=== PATIENT | female | born 1965 | race Caucasian/White ===

== ENCOUNTER 2016-04-26 10:54 | Emergency (ER) | payer OTHER ==
--- NOTE | 2016-04-26 11:11 | UCPHY ---
H & P Patient Type: New Time Seen by Provider: 04/26/16 11:05 HPI/ROS: CHIEF COMPLAINT: Dysuria, flank pain HISTORY OF PRESENT ILLNESS: 50-year-old immunocompetent female complaining of 48 hours of dysuria, increased frequency with development of left flank pain since last night. History of frequent UTI. Denies: Nausea, vomiting, abdominal pain, chest pain, fever, chills, flu-like symptoms PRIMARY CARE PROVIDER:no PCP REVIEW OF SYSTEMS: A ten point review of systems was performed and is negative with the exception of the items mentioned in the HPI PAST MEDICAL & SURGICAL HISTORY: Frequent UTI SOCIAL HISTORY: Law student PHYSICAL EXAM (Prior to examination, patient consented to physical exam, hands were washed and my usual and customary physical exam procedures followed) 1) GENERAL: Well-developed, well-nourished, alert and oriented. Appears to be in no acute distress. 2) HEAD: Normocephalic, atraumatic 3) HEENT: Pupils equal, round, reactive to light bilaterally. Sclera anicteric. 4) NECK: Full range of motion, no meningeal signs. 5) LUNGS: Clear auscultation bilaterally, no wheezes, no rhonchi, no retractions. 6) HEART: Regular rate and rhythm, no murmur, no heave, no gallop. 7) ABDOMEN: No guarding, no rebound, no focal tenderness, negative McBurney's, negative Chua's, negative Rovsing's, negative peritoneal sign, 8) MUSCULOSKELETAL: Moving all extremities, no focal areas of tenderness, no obvious trauma. No peripheral edema or discoloration. 9) BACK: positive left CVA tenderness, no rash no lesion.] 10) SKIN: No rash, no petechiae. 11) Psychiatric: Patient is oriented X 3, there is no agitation. DIFFERENTIAL DIAGNOSIS: in no particular include but limited to nephrolithiasis , pyelonephritis, cystitis - Family History Significant Family History: No pertinent family hx Constitutional: Initial Vital Signs Temperature (C) 36.8 C 04/26/16 11:12 Heart Rate 72 04/26/16 11:12 Respiratory Rate 16 04/26/16 11:12 Blood Pressure 118/83 H 04/26/16 11:12 O2 Sat (%) 97 04/26/16 11:12 O2 Delivery Mode Room Air Allergies/Adverse Reactions: acetaminophen [From Vicodin] Allergy (Verified 04/26/16 11:15) codeine Allergy (Verified 04/26/16 11:15) hydrocodone bitartrate [From Vicodin] Allergy (Verified 04/26/16 11:15) morphine Allergy (Verified 04/26/16 11:15) Penicillins Allergy (Verified 04/26/16 11:15) Sulfa (Sulfonamide Antibiotics) Allergy (Verified 04/26/16 11:15) Home Medications: Medication Instructions Recorded Cephalexin [Keflex] 500 mg PO TID 7 Days 04/26/16 Phenazopyridine HCl [Pyridium] 200 mg PO PC #10 tab 04/26/16 Medical Decision Making ED Course/Re-evaluation: I feel the patient can be treated on an outpatient basis as I believe her to be a competent decision-maker, shows no signs of urosepsis, afebrile, no comorbid medical conditions. Doubt urosepsis. Tolerating oral intake. Nonetheless, I have provided acute urinary tract infection red flag signs and symptoms precautions, and reasons to return to the emergency department. The patient understands that this diagnosis is provisional and can never be 100% accurate. Usual and customary warnings were given concerning the clinical impression and all the patient's questions were answered. The patient was instructed to return to the emergency department should her symptoms worsen or return, or develop any new symptoms, otherwise to followup as directed in discharge instructions. - Data Points Laboratory Results: 04/26/16 11:15 Urine Color YELLOW Urine Appearance CLEAR Urine pH 6.5 (5.0-7.5) Ur Specific [place] 1.015 (1.002-1.030) Urine Protein TRACE H (NEGATIVE) Urine Ketones NEGATIVE (NEGATIVE) Urine Blood 2+ H (NEGATIVE) Urine Nitrate POSITIVE H (NEGATIVE) Urine Bilirubin NEGATIVE (NEGATIVE) Urine Urobilinogen 1.0 EU (0.2-1.0) Ur Leukocyte Esterase TRACE H (NEGATIVE) Urine RBC 5-10 H /hpf (0-3) Urine WBC 15-25 H /hpf (0-3) Ur Epithelial Cells 3+ H /lpf (NONE-1+) Urine Bacteria TRACE H /hpf (NONE SEEN) Urine Mucus 2+ H /lpf (NONE-1+) Urine Glucose NEGATIVE (NEGATIVE) Urine Test NEGATIVE Medications Given: Discontinued Medications Cephalexin HCl (Keflex) 500 mg PO EDNOW ONE PRN Reason: Protocol Stop: 04/26/16 11:40 Last Admin: 04/26/16 11:50 Dose: 500 mg Departure - Departure Disposition: Home, Routine, Self-Care Clinical Impression: Pyelonephritis Condition: Good Instructions: Kidney Infection (ED) Additional Instructions: Return to the ER immediately if you experience fevers/chills, flu like symptoms , inability to tolerate oral intake, nausea or vomiting, or any other symptoms that concern you. Referrals: Lydia Hull MD [Medical Doctor] - 2-3 days, call for appt. Prescriptions: Cephalexin [Keflex] 500 mg PO TID 7 Days Phenazopyridine HCl [Pyridium] 200 mg PO #10 tab - PQRS PQRS Measurement: Not applicable
[2016-04-26 11:14] VITALS: BP 118/83; PULSE 72; RESP 16; TEMP 98.2; O2SAT 97
[2016-04-26 11:29] LABS: COLOR YELLOW; LEUKOCYTE ESTERASE,URINE TRACE (NEGATIVE); NITRITE,URINE POSITIVE (NEGATIVE); PH,URINE 6.5 (5.0-7.5)
[2016-04-26] MEDS ORDERED: CEPHALEXIN 500 MG CAP PO ONE (11:39)
[2016-04-26 11:56] LABS: BACTERIA TRACE /hpf (NONE SEEN); MUCUS 2+ /lpf (NONE-1+); WBC,URINE 15-25 /hpf (0-3)
== END 2016-04-26 12:00 | disposition home or self-care (01) ==
LOC: CED 10:54
DX: N15.9 Renal tubulo-interstitial disease, unspecified (principal); Z87.440 Personal history of urinary (tract) infections
CPT/HCPCS: 81003-PO; 81015-PO; 81025-PO; 99203-PO; G0463-PO

== ENCOUNTER 2016-04-30 14:09 | Emergency (ER) | payer OTHER ==
[2016-04-30 14:22] VITALS: BP 121/83; PULSE 70; RESP 18; TEMP 98; O2SAT 97
[2016-04-30 15:22] LABS: COLOR ORANGE
[2016-04-30 15:31] LABS: BACTERIA 1+ /hpf (NONE SEEN); MUCUS 1+ /lpf (NONE-1+)
--- NOTE | 2016-04-30 15:45 | UCPHY ---
H & P Time Seen by Provider: 04/30/16 15:24 Patient Type: Established HPI/ROS: This patient presents for recheck of pyelonephritis after being seen here 4 days ago. She was started on Keflex 4 days prior to this visit for pyelonephritis. Despite compliance with medications reports ongoing flank pain left more than right that is mild to moderate intensity as well as a sense of bladder discomfort. She also reports mild nausea but no vomiting. She reports partial improvement in her symptoms from [id number] analgesics with no other exacerbating or alleviating factors. ROS: No high fevers or chills. No other constitutional symptoms. HEENT: No complaints pulmonary: No complaints cardiovascular: No lightheadedness. : No vaginal discharge. She is postmenopausal. 7 point ROS is otherwise negative. Past Medical/Surgical History: Pyelonephritis with visit here to [facility] 4 days prior to this visit. 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 ENT, Mouth: Mucous membranes moist. Respiratory: No respiratory distress or tachypnea Cardiovascular: Regular rate and rhythm. Gastrointestinal: Mild suprapubic tenderness with no guarding or rebound. Back: Mild left CVA tenderness Neurological: Alert with no deficits Skin: Warm and dry, no rashes. Psychiatric: Mood and affect normal DIFFERENTIAL DIAGNOSIS: After history and physical exam differential diagnosis was considered for persistent pyelonephritis, musculoskeletal strain, viral illness, perinephric abscess, PID Constitutional: Initial Vital Signs Temperature (C) 36.6 C 04/30/16 14:19 Heart Rate 70 04/30/16 14:19 Respiratory Rate 18 04/30/16 14:19 Blood Pressure 121/83 H 04/30/16 14:19 O2 Sat (%) 97 04/30/16 14:19 O2 Delivery Mode Room Air Allergies/Adverse Reactions: acetaminophen [From Vicodin] Allergy (Verified 04/26/16 11:15) codeine Allergy (Verified 04/26/16 11:15) hydrocodone bitartrate [From Vicodin] Allergy (Verified 04/26/16 11:15) morphine Allergy (Verified 04/26/16 11:15) Penicillins Allergy (Verified 04/26/16 11:15) Sulfa (Sulfonamide Antibiotics) Allergy (Verified 04/26/16 11:15) Home Medications: Medication Instructions Recorded Cephalexin [Keflex] 500 mg PO TID 7 Days 04/26/16 Phenazopyridine HCl [Pyridium] 200 mg PO PC #10 tab 04/26/16 Ciprofloxacin [Cipro] 500 mg PO BID #14 tab 04/30/16 Phenazopyridine HCl [Pyridium 200 mg PO TID PRN #6 tab 04/30/16 200mg (RX)] MDM/Departure - MDM Diagnostics: The patient's urine micro reveals persistent pyuria finding similar to her 1st visit. ED Course/Re-evaluation: Given patient's ongoing symptoms will switch her to a different antibiotic. We discussed options with her allergies were somewhat limited. She will start a course of ciprofloxacin. She understands the potential risk of tendon inflammation/rupture but has tolerated this medication in the past and accepts this risk. Despite the patient's persistent symptoms, she does not have septic physiology and appears clinically well. No fevers or other concerning findings. - Depart Disposition: Home, Routine, Self-Care Clinical Impression: Urinary tract infection Qualifiers: Urinary tract infection type: acute pyelonephritis Qualifier Code: (N10) Acute pyelonephritis Instructions: Urinary Tract Infection in Women (ED) Additional Instructions: Diagnosis: Pyelonephritis Plan: Stop Keflex. Start Cipro antibiotic. Tylenol and/or ibuprofen for discomfort if needed Drink plenty fluids Peridium in addition for burning as needed. Return for any significant worsening despite the treatment plan. Prescriptions: Ciprofloxacin [Cipro] 500 mg PO BID #14 tab Phenazopyridine HCl [Pyridium 200mg (RX)] 200 mg PO TID PRN #6 tab PRN Reason: dysuria Referrals: NONE *PRIMARY CARE P,. [Primary Care Provider] - As per Instructions - PQRS PQRS Measurement: NA
== END 2016-04-30 15:53 | disposition home or self-care (01) ==
LOC: CED 14:09
DX: N10 Acute pyelonephritis (principal)
CPT/HCPCS: 81003-PO; 81015-PO; 99214-PO; G0463-PO

== ENCOUNTER 2018-05-22 15:40 | Emergency (ER) | payer OTHER ==
[2018-05-22 15:50] VITALS: BP 132/84
[2018-05-22] MEDS ORDERED: ACETAMINOPHEN 500 MG TAB PO ONE (16:13)
--- NOTE | 2018-05-22 16:25 | EDPHY ---
H & P Stated Complaint: 45 min lpta fell backward hit post head and left elbow irma,-loc Time Seen by Provider: 05/22/18 15:51 HPI/ROS: This patient presents with closed head injury and neck injury. She explains that she was at her home walking on the back patio and slipped on an icy stone stairs striking her head on flag stone at the occiput. She states that she slammed on very hard heard a crack sound. She states that the pain immediately radiated to her face and her neck. She describes a "a flores sound" in her left ear immediately thereafter and describes plugging her nose and blowing with reduction in the air rushing sound in her ear. She states that she has 7/10 generalized headache since that head injury and was dazed for moment or 2 thereafter but did not having LOC. She also describes 6/10 neck pain midline radiating bilaterally. Finally, she reports left elbow pain at the olecranon that is mild at baseline moderate with movement. She also has moderate tenderness to the elbow and associated swelling to the olecranon. Her drove her here by private vehicle for further evaluation. ROS: Constitutional: She felt well prior to the fall Neuro: No significant change in her thinking since the incident occurred her corroborates this. No focal numbness tingling weakness since the injury HEENT: She denies any dental injuries. No other facial trauma. Pulmonary: No chest wall pain Cardiovascular: No lightheadedness GI: No nausea or vomiting Integumentary: No lacerations or abrasions. 10 point review of symptoms is performed and otherwise negative with exception of pertinent positives and negatives listed in HPI and ROS Source: Patient Exam Limitations: No limitations - Personal History LMP (Females 10-55): Post Menopausal Current Tetanus Diphtheria and Acellular Pertussis (TDAP): Yes Tetanus Vaccine Date: 2017 - Medical/Surgical History Hx Asthma: No Hx Chronic Respiratory Disease: No Hx Diabetes: No Hx Cardiac Disease: No Hx Renal Disease: No Hx Cirrhosis: No Hx Alcoholism: No Hx HIV/AIDS: No Hx Splenectomy or Spleen Trauma: No Other PMH: Med hx-chronic uti. 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 HEENT: Is no external evidence of trauma on exam. Nose atraumatic. Ears: Clear bilaterally with no hemotympanum. Oropharynx: No dental trauma or malocclusion. No intraoral lacerations. Eyes: Pupils are equal and reactive to light. Extraocular motions are intact with exception of mild diplopia with extraocular motions. I detect no obvious gross extraocular motion abnormality but she does notice slight diplopia with extraocular motions. Optic fundi: Clear with no papilledema or hemorrhage. Neck: Trachea is midline with no stridor. Patient has midline tenderness around C5 and also midline tenderness up near the occiput/C2 region. This tenderness extends to bilateral paraspinous muscular region. Lungs: Clear to auscultation bilaterally Cardiac: Regular rate and rhythm no murmur gallop or rub. Chest: Nontender. Abdomen: Soft nontender no organomegaly Back: Nontender Extremities: Atraumatic except for left elbow Left elbow: Patient has swelling to the olecranon with associated tenderness. She is able the pronate supinate without difficulty. She is also able flex extend as mild increased pain with extension. Neuro: GCS of 15. Cranial nerves II through XII intact. 2 out of 3 five- minute memory is intact. Cerebellar exam is normal as judged by symmetric rapid hand movements bilaterally. No pronator drift. No sensory or motor deficits are appreciated. Initial differential diagnosis: Concussion, basilar skull fracture, cervical spine strain, cervical spine fracture, traumatic hematoma to elbow, acute fracture, contusion Constitutional: Initial Vital Signs Temperature (C) 36.6 C 05/22/18 15:45 Heart Rate 68 05/22/18 15:45 Respiratory Rate 16 05/22/18 15:45 Blood Pressure 132/84 H 05/22/18 15:45 O2 Sat (%) 94 05/22/18 15:45 O2 Delivery Mode Room Air Allergies/Adverse Reactions: codeine Allergy (Verified 05/22/18 15:44) hydrocodone bitartrate [From Vicodin] Allergy (Verified 05/22/18 15:44) morphine Allergy (Verified 05/22/18 15:44) Penicillins Allergy (Verified 05/22/18 15:44) Sulfa (Sulfonamide Antibiotics) Allergy (Verified 05/22/18 15:44) Home Medications: Medication Instructions Recorded NK [No Known Home Meds] 05/22/18 Prophylactic Uti Med 05/22/18 Medical Decision Making - Diagnostics Imaging Results: Imaging Impressions Head CT 05/22/18 16:09 Impression: There is no acute intracranial abnormality identified on this unenhanced CT evaluation. UNENHANCED CT SCAN OF THE CERVICAL SPINE Technique: A multidetector unenhanced helical CT scan was obtained from the clivus caudally through the upper thoracic spine, with images reformatted at 1.00 mm increments, and are reviewed in soft tissue, bone, and lung windows. Parasagittal and paracoronal reconstructed images are reviewed on the workstation. The DFOV is 16.1 cm. A dose reduction protocol was used. Findings: There is straightening of the normal cervical lordosis, suggestive of underlying muscle spasm. There is also a very mild dextrocervical curvature. 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 The cervical vertebral body heights are preserved. There is a benign intraosseous hemangioma associated with the C4 centrum. There is no acute fracture, or facet malalignment. The interspinous distances are normal. The craniocervical junction is normal. The predental space, and the atlantoaxial lateral mass alignment is normal. The base and the tip of the dens are normal. There is focal disk herniation identified. The aforementioned bony bar seen along the posterior C2-C3 centra results in a mild degree of central canal stenosis. The neural foramina are patent. There is no prevertebral or epidural hematoma identified. The prevertebral soft tissues are normal, as are the lung apices. Impression: 1. Secondary features suggestive of some underlying muscle spasm. 2. There is a "bony bar" seen along the posterior C2-C3 centra, resulting in a mild central canal stenosis. 3. There is no acute cervical osseous abnormality identified. If there is further clinical concern regarding the patient's symptoms, correlative MR imaging could be considered, if otherwise not contraindicated. Findings were discussed with PRANAY MEYERS MD at 17:12, on 05/22/2018. Cervical Spine CT 05/22/18 16:11 Impression: There is no acute intracranial abnormality identified on this unenhanced CT evaluation. UNENHANCED CT SCAN OF THE CERVICAL SPINE Technique: A multidetector unenhanced helical CT scan was obtained from the clivus caudally through the upper thoracic spine, with images reformatted at 1.00 mm increments, and are reviewed in soft tissue, bone, and lung windows. Parasagittal and paracoronal reconstructed images are reviewed on the workstation. The DFOV is 16.1 cm. A dose reduction protocol was used. Findings: There is straightening of the normal cervical lordosis, suggestive of underlying muscle spasm. There is also a very mild dextrocervical curvature. 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 The cervical vertebral body heights are preserved. There is a benign intraosseous hemangioma associated with the C4 centrum. There is no acute fracture, or facet malalignment. The interspinous distances are normal. The craniocervical junction is normal. The predental space, and the atlantoaxial lateral mass alignment is normal. The base and the tip of the dens are normal. There is focal disk herniation identified. The aforementioned bony bar seen along the posterior C2-C3 centra results in a mild degree of central canal stenosis. The neural foramina are patent. There is no prevertebral or epidural hematoma identified. The prevertebral soft tissues are normal, as are the lung apices. Impression: 1. Secondary features suggestive of some underlying muscle spasm. 2. There is a "bony bar" seen along the posterior C2-C3 centra, resulting in a mild central canal stenosis. 3. There is no acute cervical osseous abnormality identified. If there is further clinical concern regarding the patient's symptoms, correlative MR imaging could be considered, if otherwise not contraindicated. Findings were discussed with PRANAY MEYERS MD at 17:12, on 05/22/2018. Elbow X-Ray 05/22/18 16:13 Impression: There is no acute osseous abnormality. 3 view elbow x-rays: Negative for fracture by my interpretation Imaging: I viewed and interpreted images myself ((Elbow x-ray)) ED Course/Re-evaluation: Tylenol p.o. I counseled patient regarding her CT head negative for basilar skull fracture or intracranial abnormality and cervical spine x-rays also negative for fracture Elbow x-ray no evidence of fracture Discussion: Findings are consistent with concussion without LOC, neck strain and elbow hematoma. Will plan to treat her with Tylenol methocarbamol and ibuprofen. She understands need to return should she develop unbearable headache despite treatment plan or other concerns. - Data Points Medications Given: Discontinued Medications Acetaminophen (Tylenol) 1,000 mg PO EDNOW ONE Stop: 05/22/18 16:14 Last Admin: 05/22/18 16:20 Dose: 1,000 mg Departure - Departure Disposition: Home, Routine, Self-Care Clinical Impression: Concussion Qualifiers: Encounter type: initial encounter Loss of consciousness presence/duration: without LOC Qualified Code(s): S06.0X0A - Concussion without loss of consciousness, initial encounter Neck muscle strain Qualifiers: Encounter type: initial encounter Qualified Code(s): S16.1XXA - Strain of muscle, fascia and tendon at neck level, initial encounter Traumatic hematoma of left elbow Qualifiers: Encounter type: initial encounter Qualified Code(s): S50.02XA - Contusion of left elbow, initial encounter Condition: Good Instructions: Concussion (ED), Cervical Strain (ED) Additional Instructions: Diagnoses: 1. Concussion 2. Neck muscle strain 3. Elbow contusion/hematoma Plan: Ice 20 min at a time to sore areas 3 times a day for the next few days Ibuprofen Tylenol for pain control Methocarbamol muscle relaxant in addition for neck pain as needed. Limit activity until your headache resolved. None lillian the counter wait another 7 days until you engage in activities but she risk for recurrent head injury Return emergency department if he developed unbearable headache despite above treatment plan or for other concerns.
== END 2018-05-22 17:35 | disposition home or self-care (01) ==
LOC: CED 15:40
DX: S06.0X0A Concussion without loss of consciousness, initial encounter (principal); S16.1XXA Strain of muscle, fascia and tendon at neck level, initial encounter; S50.02XA Contusion of left elbow, initial encounter; Y92.017 Garden or yard in single-family (private) house as the place of occurrence of the external cause; W00.1XXA Fall from stairs and steps due to ice and snow, initial encounter; Z87.440 Personal history of urinary (tract) infections
CPT/HCPCS: 70450-PO; 72125-PO; 73080-PO; 99284-ER